=== PATIENT | female | born 1995 | race Caucasian/White ===

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

== ENCOUNTER 2017-01-17 15:09 | Emergency (ER) | payer OTHER ==
[~2017-01-17] VITALS: Ht 170.2 cm; Wt 67.1 kg
--- NOTE | 2017-01-17 15:55 | PD ---
HPI Chief Complaint Contractions Date Seen: Jan 17, 2017 Travel History International Travel<30 Days: No Contact w/Intl Traveler<30Days: No History of Present Illness HPI Patient is a 21 year old at 30-5/7 weeks gestation who presents today for contractions. Contractions have been occurring for the past week q20-30 min and last <1min. She denies any vaginal bleeding or discharge. No gush or leaking of fluid. Positive movement. care with [facility]. History Past Medical History Narrative Medical Mild pulmonary stenosis Obstetric History Obstetric History Elective Past Surgical History Surgical History: No Previous Surgery Family History Family History: Negative Social History Alcohol Use: No Tobacco Use: No Substance Abuse: No Allergies-Medications (Allergen,Severity, Reaction): Coded Allergies: kiwi (Unverified Allergy, Severe, "facial swelling", 01/17/17) Home Meds Active Scripts Without A W/Fe Fum-Fe (Provida Dha 16-16-1.25-110 mg)1 Cap Cap1 Cap PO DAILY #90 BOTTLE Ref 3 Prov:Jose Suarez MD 12/12/16 Reported Medications Hydroxyprogesterone Caproate Inj ([place] Inj)250 Mg/Ml [id number] Mg IM ONCE PRN ( weekly) #1 VIAL Ref 0 01/09/17 Review of Systems Except as stated in HPI: all other systems reviewed are Neg General / Constitutional: No: Fever, Chills Eyes: No: Visual changes HENT: No: Headaches Cardiovascular: No: Chest Pain or Discomfort, Palpitations Respiratory: No: Cough, Short of Breath Gastrointestinal: No: Nausea, Vomiting, Abdominal Pain Genitourinary: Pelvic Pain, No: Dysuria, Hematuria, Discharge, Vaginal Bleeding Musculoskeletal: No: Edema Physical Exam Narrative GENERAL: Well-nourished, well-developed patient. SKIN: Warm and dry. HEAD: Normocephalic and atraumatic. EYES: No scleral icterus. No injection or drainage. ENT: No nasal drainage noted. Mucous membranes pink. Airway patent. NECK: Supple, trachea midline. No JVD. CARDIOVASCULAR: Regular rate and rhythm without murmurs, gallops, or rubs. RESPIRATORY: Breath sounds equal bilaterally. No accessory muscle use. ABDOMEN/GI: Abdomen soft, non-tender, bowel sounds present, no rebound, no guarding Gravid to 30 weeks size GENITOURINARY: External Genitalia: intact and normal in appearance Dilatation: 1 Effacement: 50 Station: -1 Presentation: vertex Membranes: intact Uterine Contractions: none FHT's: Category: I Baseline: 135 Reactive: + Variability: moderate Decels: none EXTREMITIES: No cyanosis or edema. BACK: Nontender without obvious deformity. No CVA tenderness. NEUROLOGICAL: Awake and alert. Motor and sensory grossly within normal limits. Normal speech. Data Data Vital Signs Reviewed: Yes MDM Medical Record Reviewed: Yes Narrative Course / MDM 21 year old at 30-5/7 weeks gestation 1. IUP- Category I tracing, reassuring 2. contractions- patient had DVE in outpatient office today significant for /, cannot obtain FFN. No contractions on monitor. Will monitor fht/ toco for the next couple hours. If patient is daniel, will keep for observation. Will obtain US for cervical length. dw Dr. Person Addendum: Cervical length 16mm, ANNELISE 12.9, reassuring. No contractions on monitor. s/p Betamethasone 12mg IM on 11/28 Will discharge to home. Follow-up with [facility]. Diagnosis Diagnosis: Primary Impression: contractions Additional Impression: 30 weeks gestation of Disposition: DISCHARGE HOME Condition: Stable Alina Samuels MD, R3 Jan 17, 2017 15:54
[2017-01-17] MEDS ORDERED: ACETAMINOPHEN 325 MG TAB PO ONE (17:00)
[2017-01-24] MEDS ORDERED: MAKE250I IM (12:56)
== END 2017-01-17 17:37 | disposition home or self-care (01) ==
LOC: HOBED 15:09
DX: O47.03 False labor before 37 completed weeks of gestation, third trimester (principal); Z3A.30 30 weeks gestation of pregnancy
CPT/HCPCS: 76815; 76817; 99284

== ENCOUNTER 2017-01-27 23:21 | Emergency (ER) | payer OTHER ==
--- NOTE | 2017-01-28 00:01 | PD ---
HPI Chief Complaint Decreased movement Date Seen: Jan 27, 2017 Time Seen: 23:45 Travel History International Travel<30 Days: No Contact w/Intl Traveler<30Days: No Known Affected Area: No History of Present Illness HPI 21-year-old at 32+ weeks gestation who reports decreased movement today. Upon arrival she had improved movement. History Past Medical History Narrative Medical Mild pulmonary stenosis Obstetric History Obstetric History One prior SAB On 17 hydroxyprogesterone this due to shortened cervix following previous admission for labor Past Surgical History Narrative Surgical D&C Family History Family History: Negative Social History Alcohol Use: No Tobacco Use: No Substance Abuse: No Allergies-Medications (Allergen,Severity, Reaction): Coded Allergies: kiwi (Unverified Allergy, Severe, "facial swelling", 01/24/17) Home Meds Active Scripts Without A W/Fe Fum-Fe (Provida Dha 16-16-1.25-110 mg) 1 Cap Cap, 1 CAP PO DAILY for nutrition, #90 BOTTLE 3 Refills Prov:Jose Suarez MD 12/12/16 Reported Medications Hydroxyprogesterone Caproate Inj (Ana M Inj) 250 Mg/Ml Inj, 250 MG IM ONCE Y for weekly, #1 VIAL 0 Refills 01/09/17 Review of Systems Except as stated in HPI: all other systems reviewed are Neg Physical Exam Narrative GENERAL: Well-nourished, well-developed patient. SKIN: Warm and dry. HEAD: Normocephalic and atraumatic. EYES: No scleral icterus. No injection or drainage. ENT: No nasal drainage noted. Mucous membranes pink. Airway patent. NECK: Supple, trachea midline. No JVD. CARDIOVASCULAR: Regular rate and rhythm without murmurs, gallops, or rubs. RESPIRATORY: Breath sounds equal bilaterally. No accessory muscle use. ABDOMEN/GI: Abdomen soft, non-tender, bowel sounds present, no rebound, no guarding Gravid to [-] weeks size Fundal Height: [-] GENITOURINARY: External Genitalia: intact and normal in appearance BUS glands: [-] Cervix: [-] Dilatation: [-] Effacement: [-] Station: [-] Presentation: [-] Membranes: [intact or ruptured] Uterine Contractions: [-] FHT's: Category: [-] Baseline: [-] Reactive: [-Yes] Variability: [-] Decels: [-] EXTREMITIES: No cyanosis or edema. BACK: Nontender without obvious deformity. No CVA tenderness. NEUROLOGICAL: Awake and alert. Motor and sensory grossly within normal limits. Five out of 5 muscle strength in all muscle groups. Normal speech. Data Data Vital Signs Reviewed: Yes MDM Medical Record Reviewed: Yes Narrative Course / MDM Assessment: 33 week intrauterine with decreased movement with reassuring surveillance now Plan: Reactive NST, movement parameters were reviewed. Follow up for routine visits. Diagnosis Diagnosis: Primary Impression: 33 weeks gestation of Additional Impression: Decreased movement Disposition: 01 DISCHARGE HOME Condition: Good Patient Instructions: General Instructions, Labor (ED), Movement (ED) Additional Instructions: RETURN FOR CONTRACTIONS, LOSS OF FLUID (WATER BREAKING), VAGINAL BLEEDING, OR VAGINAL BLEEDING DRINK 8-10 LARGE GLASSES OF WATER EVERY DAY KEEP YOUR SCHDEULED APPOINTMENT WITH YOUR PROVIDER Departure Forms: Tests/Procedures Noam Red MD Jan 28, 2017 00:01
== END 2017-01-28 00:04 | disposition home or self-care (01) ==
LOC: HOBED 23:21
DX: O36.8130 Decreased fetal movements, third trimester, not applicable or unspecified (principal); Z3A.33 33 weeks gestation of pregnancy; Z79.899 Other long term (current) drug therapy
CPT/HCPCS: 59025

== ENCOUNTER 2017-02-20 23:09 | Emergency (ER) | payer OTHER ==
--- NOTE | 2017-02-20 23:47 | PD ---
HPI Chief Complaint Small amount of bleeding vaginally after sex Date Seen: Feb 20, 2017 Time Seen: 23:40 Travel History International Travel<30 Days: No Contact w/Intl Traveler<30Days: No Known Affected Area: No History of Present Illness HPI 21-year-old white female at 35 weeks who [facility] and presents complaining of a small quarter size spot of blood after intercourse , no kei blood per vagina no bleeding like a period no pain, heart rate tracing is reactive and there only an occasional irregular contraction Weeks Gestation: 35 Para: 0 : 2 History Obstetric History Obstetric History 1 early loss History of short cervix with this [16 mm] and is been on Cohutta injections monthly Social History Alcohol Use: No Tobacco Use: No Substance Abuse: No Allergies-Medications (Allergen,Severity, Reaction): Coded Allergies: kiwi (Unverified Allergy, Severe, "facial swelling", 01/31/17) Home Meds Active Scripts Without A W/Fe Fum-Fe (Provida Dha 16-16-1.25-110 mg) 1 Cap Cap, 1 CAP PO DAILY for nutrition, #90 BOTTLE 3 Refills Prov:Jose Suarez MD 12/12/16 Reported Medications Hydroxyprogesterone Caproate Inj (Cohutta Inj) 250 Mg/Ml Inj, 250 MG IM ONCE Y for weekly, #1 VIAL 0 Refills 01/09/17 Review of Systems General / Constitutional: No: Fever, Weight Gain, Chills, Other Eyes: No: Diploplia, Blurred Vision, Visual changes, Pain, Photophobia HENT: No: Headaches, Vertigo, Lightheadedness Cardiovascular: No: Irregular Rhythm, Chest Pain or Discomfort, Palpitations, Tachycardia, Syncope, Varicosities, Edema, Cyanosis Respiratory: No: Cough, Short of Breath, Other Gastrointestinal: No: Nausea, Vomiting, Diarrhea Genitourinary: Vaginal Bleeding, No: Decreased Urinary Output, Oliguria Musculoskeletal: No: Limited ROM, Weakness, Cramping, Edema, Pain Skin: No Rash, No Itching, No Dryness, No Lumps, No Change in Pigmentation, No Change in Nails, No Alopecia, No Lesions Neurologic: No: Weakness, Dizziness, Syncope, Focal Abnormalities, Coordination Problem, Headache, Slurred Speech, Seizures Psychiatric: No: Depression, Suicidal Ideations, Homicidal Ideation Endocrine: No: Heat Intolerance, Cold Intolerance, Polydipsia, Polyuria, Other Physical Exam Narrative GENERAL: Well-nourished, well-developed patient. SKIN: Warm and dry. HEAD: Normocephalic and atraumatic. EYES: No scleral icterus. No injection or drainage. ENT: No nasal drainage noted. Mucous membranes pink. Airway patent. NECK: Supple, trachea midline. No JVD. CARDIOVASCULAR: Regular rate and rhythm without murmurs, gallops, or rubs. RESPIRATORY: Breath sounds equal bilaterally. No accessory muscle use. BREASTS: Bilateral exam showed no masses , no retractions, no nipple discharge. ABDOMEN/GI: Abdomen soft, non-tender, bowel sounds present, no rebound, no guarding Gravid to [35-] weeks size Fundal Height: [35-] GENITOURINARY: External Genitalia: intact and normal in appearance Speculum exam shows no blood in the vagina and the cervix appears normal noninfected but somewhat friable, one could easily be traumatized by intercourse and spot somewhat Cervix: [post-] Dilatation: [FT-] Effacement: [70-] Station: [-3] Presentation: [vtx-] Membranes: [intact ] Uterine Contractions: [-irreg] FHT's: Category: [1-] Baseline: [133-] Reactive: [-yes] Variability: mod[-] Decels: [none-] EXTREMITIES: No cyanosis or edema. BACK: Nontender without obvious deformity. No CVA tenderness. NEUROLOGICAL: Awake and alert. Motor and sensory grossly within normal limits. Five out of 5 muscle strength in all muscle groups. Normal speech. MDM Interpretation(s) Patient is a 21-year-old white female at 35 weeks presents with a small amount of postcoital bleeding. She has a history short cervix that is measured 16 mm the past. She is on Cohutta injections for this. Apparently the cervix is been essentially the same since about 23 weeks, provide the cervical exam is negative blood in the vagina cervix appears normal somewhat friable cervical exam is fingertip 70% -3, heart rate tracing is reactive and there are no regular contractions only an occasional 1 Plan Plan to discharge patient home with instructions she'll follow-up with her OB provider Diagnosis Diagnosis: Primary Impression: Postcoital bleeding Additional Impression: 35 weeks gestation of Disposition: DISCHARGE HOME Condition: Stable Demario Ferraro II, MD Feb 20, 2017 23:47
== END 2017-02-20 23:51 | disposition home or self-care (01) ==
LOC: HOBED 23:09
DX: O26.853 Spotting complicating pregnancy, third trimester (principal); N93.0 Postcoital and contact bleeding; Z3A.35 35 weeks gestation of pregnancy
CPT/HCPCS: 59025

== ENCOUNTER 2017-03-18 07:58 | Inpatient (IN) | payer OTHER ==
[~2017-03-18] VITALS: Ht 170.2 cm; Wt 74.8 kg
[2017-03-18] VITALS (102 sets, daily range): BP systolic 103–151; BP diastolic 56–102; PULSE 78–123; RESP 14–22; TEMP 98–99.5
[2017-03-18] MEDS ORDERED: LACTATED RINGER'S 1000 ML INJ 1,000 ML IV PRN (08:20)
[2017-03-18] MEDS ORDERED: LACTATED RINGER'S 1000 ML INJ 1,000 ML IV SCH (08:20)
--- NOTE | 2017-03-18 08:22 | PD ---
HPI Travel History International Travel<30 Days: No Contact w/Intl Traveler<30Days: No History of Present Illness HPI 21 yr old at 39 weeks presenting with contractions. Contractions started at 5am this morning, every 10 minutes.Contractions have increased in frequency to every 3-4min since 7am. Reports getting care at [facility]. GBS negative. Reports having contractions at 23 weeks and dilatation to 1cm. Reports good movement. Denies vaginal bleeding and leakage of fluid. Currently 4cm and 80% effaced. History Past Medical History Medical History: Denies Significant Hx Obstetric History Obstetric History at 39 weeks contractions @ 23 weeks Past Surgical History Surgical History: No Previous Surgery Family History Family History: Negative Social History Alcohol Use: No Tobacco Use: No (smoke during first month of ) Substance Abuse: No Allergies-Medications (Allergen,Severity, Reaction): Coded Allergies: kiwi (Verified Allergy, Severe, "facial swelling", 03/14/17) Home Meds Discontinued Scripts Without A W/Fe Fum-Fe (Provida Dha 16-16-1.25-110 mg) 1 Cap Cap, 1 CAP PO DAILY for nutrition, #90 BOTTLE 3 Refills Prov:Jose Suarez MD 12/12/16 Review of Systems Except as stated in HPI: all other systems reviewed are Neg Physical Exam Narrative GENERAL: Well-nourished, well-developed patient. SKIN: Warm and dry. HEAD: Normocephalic and atraumatic. EYES: No scleral icterus. No injection or drainage. ENT: No nasal drainage noted. Mucous membranes pink. Airway patent. NECK: Supple, trachea midline. No JVD. CARDIOVASCULAR: Regular rate and rhythm without murmurs, gallops, or rubs. RESPIRATORY: Breath sounds equal bilaterally. No accessory muscle use. ABDOMEN/GI: Abdomen soft, non-tender, bowel sounds present, no rebound, no guarding Gravid to [-] weeks size Fundal Height: [-] GENITOURINARY: External Genitalia: intact and normal in appearance Cervix: mid position Dilatation: 4cm Effacement: 80-90% Station: -1 Presentation: vertex Membranes: intact Uterine Contractions: every 3-5 minutes FHT's: Category: 1 Baseline: 130 Reactive: yes Variability: moderate Decels: none EXTREMITIES: No cyanosis or edema. BACK: Nontender without obvious deformity. NEUROLOGICAL: Awake and alert. Motor and sensory grossly within normal limits. Data Data Vital Signs Reviewed: Yes Orders Orders Admit To Inpatient (03/18/17 ) Code Status (03/18/17 08:20) Vital Signs (Adult) .Per protocol (03/18/17 08:20) Activity Oob Ad Joanie (03/18/17 08:20) Heart (03/18/17 08:20) Amnioinfusion (03/18/17 08:20) Urinary Catheter Management .ONCE (03/18/17 08:20) Diet Liquid (03/18/17 Breakfast) Lactated Ringer's 1000 Ml Inj (Lr 1000 M (03/18/17 08:20) Lactated Ringer's 1000 Ml Inj (Lr 1000 M (03/18/17 08:20) Sodium Chlorid 0.9% 500 Ml Inj (Ns 500 M (03/18/17 08:30) Sodium Chlor 0.9% 1000 Ml Inj (Ns 1000 M (03/18/17 08:40) Lidocaine 1% Inj (50 Ml) (Xylocaine 1% I (03/18/17 08:30) Citric Acid-Sodium Citrate Liq (Bicitra (03/18/17 08:30) Ondansetron Inj (Zofran Inj) (03/18/17 08:30) Fentanyl Inj (Fentanyl Inj) (03/18/17 08:30) Fentanyl Inj (Fentanyl Inj) (03/18/17 08:30) Complete Blood Count With Diff (03/18/17 08:20) Hold Clot (03/18/17 08:20) Abo/Rh Blood Type (03/18/17 08:20) Urinalysis - C+S If Indicated (03/18/17 08:20) Resp Oxygen Non Rebreathe Mask (03/18/17 ) ^ Epidural / Intrathecal Infus (03/18/17 08:20) Oxytocin 30 Units-500ml Premix (Pitocin (03/18/17 08:30) Lidocaine 1% Inj (50 Ml) (Xylocaine 1% I (03/18/17 08:30) Light Mineral Oil (Muri-Lube Oil) (03/18/17 08:30) Inpatient Certification (03/18/17 ) Group B Strep: Negative MDM Medical Record Reviewed: Yes Narrative Course / MDM 21yr at 39 weeks in active labor 1. IUP -category 1, reassuring -continue to monitor 2. GBS negative 3. Labor -made cervical change from previously -regular painful contractions\\ -Admit to L& D -routine labor care -Epidural anesthesia Sarah Del Valle MD R1 Mar 18, 2017 08:21
[2017-03-18] MEDS ORDERED: LIDOCAINE HCL 1% 50 ML VIAL INFIL PRN (08:30)
[2017-03-18] MEDS ORDERED: LIDOCAINE HCL 1% 50 ML VIAL I-DERMAL PRN (08:30)
[2017-03-18] MEDS ORDERED: OXYTOCIN 30 UNITS-500ML PREMIX 500 ML IV ONE (08:30)
[2017-03-18] MEDS ORDERED: MINERAL OIL 10 ML VIAL TOPICAL PRN (08:30)
[2017-03-18] MEDS ORDERED: CITRIC ACID-SODIUM CITRATE LIQ 30 ML UDC PO SCH (08:30)
[2017-03-18] MEDS ORDERED: ONDANSETRON HCL 4 MG/2 ML VIAL IV PUSH PRN (08:30)
[2017-03-18] MEDS ORDERED: SODIUM CHLORID 0.9% 500 ML INJ 500 ML IV PRN (08:30)
--- NOTE | 2017-03-18 08:39 | HHI.HP ---
History & Physical H&P Patient Name: Eva Silvestre Unit Number: [id number] Date of : 1995 Patient Status: Registered Emergency Room Attending Doctor: Monse Person MD HPI HPI Travel History International Travel<30 Days: No Contact w/Intl Traveler<30Days: No History of Present Illness HPI 21 yr old at 39 weeks presenting with contractions. Contractions started at 5am this morning, every 10 minutes.Contractions have increased in frequency to every 3-4min since 7am. Reports getting care at [facility]. GBS negative. Reports having contractions at 23 weeks and dilatation to 1cm. Reports good movement. Denies vaginal bleeding and leakage of fluid. Currently 4cm and 80% effaced. History (Limited) History Past Medical History Medical History: Denies Significant Hx Obstetric History Obstetric History at 39 weeks contractions @ 23 weeks Past Surgical History Surgical History: No Previous Surgery Family History Family History: Negative Social History Alcohol Use: No Tobacco Use: No (smoke during first month of ) Substance Abuse: No Allergies-Medications Allergies-Medications (Allergen,Severity, Reaction): Coded Allergies: kiwi (Verified Allergy, Severe, "facial swelling", 03/14/17) Home Meds Discontinued Scripts Without A W/Fe Fum-Fe (Provida Dha 16-16-1.25-110 mg) 1 Cap Cap, 1 CAP PO DAILY for nutrition, #90 BOTTLE 3 Refills Prov:Jose Suarez MD 12/12/16 ROS Review of Systems Except as stated in HPI: all other systems reviewed are Neg Physical Exam Physical Exam Narrative GENERAL: Well-nourished, well-developed patient. SKIN: Warm and dry. HEAD: Normocephalic and atraumatic. EYES: No scleral icterus. No injection or drainage. ENT: No nasal drainage noted. Mucous membranes pink. Airway patent. NECK: Supple, trachea midline. No JVD. CARDIOVASCULAR: Regular rate and rhythm without murmurs, gallops, or rubs. RESPIRATORY: Breath sounds equal bilaterally. No accessory muscle use. ABDOMEN/GI: Abdomen soft, non-tender, bowel sounds present, no rebound, no guarding Gravid to [-] weeks size Fundal Height: [-] GENITOURINARY: External Genitalia: intact and normal in appearance Cervix: mid position Dilatation: 4cm Effacement: 80-90% Station: -1 Presentation: vertex Membranes: intact Uterine Contractions: every 3-5 minutes FHT's: Category: 1 Baseline: 130 Reactive: yes Variability: moderate Decels: none EXTREMITIES: No cyanosis or edema. BACK: Nontender without obvious deformity. NEUROLOGICAL: Awake and alert. Motor and sensory grossly within normal limits. Data Data Data Vital Signs Reviewed: Yes Orders Orders Admit To Inpatient (03/18/17 ) Code Status (03/18/17 08:20) Vital Signs (Adult) .Per protocol (03/18/17 08:20) Activity Oob Ad Joanie (03/18/17 08:20) Heart (03/18/17 08:20) Amnioinfusion (03/18/17 08:20) Urinary Catheter Management .ONCE (03/18/17 08:20) Diet Liquid (03/18/17 Breakfast) Lactated Ringer's 1000 Ml Inj (Lr 1000 M (03/18/17 08:20) Lactated Ringer's 1000 Ml Inj (Lr 1000 M (03/18/17 08:20) Sodium Chlorid 0.9% 500 Ml Inj (Ns 500 M (03/18/17 08:30) Sodium Chlor 0.9% 1000 Ml Inj (Ns 1000 M (03/18/17 08:40) Lidocaine 1% Inj (50 Ml) (Xylocaine 1% I (03/18/17 08:30) Citric Acid-Sodium Citrate Liq (Bicitra (03/18/17 08:30) Ondansetron Inj (Zofran Inj) (03/18/17 08:30) Fentanyl Inj (Fentanyl Inj) (03/18/17 08:30) Fentanyl Inj (Fentanyl Inj) (03/18/17 08:30) Complete Blood Count With Diff (03/18/17 08:20) Hold Clot (03/18/17 08:20) Abo/Rh Blood Type (03/18/17 08:20) Urinalysis - C+S If Indicated (03/18/17 08:20) Resp Oxygen Non Rebreathe Mask (03/18/17 ) ^ Epidural / Intrathecal Infus (03/18/17 08:20) Oxytocin 30 Units-500ml Premix (Pitocin (03/18/17 08:30) Lidocaine 1% Inj (50 Ml) (Xylocaine 1% I (03/18/17 08:30) Light Mineral Oil (Muri-Lube Oil) (03/18/17 08:30) Inpatient Certification (03/18/17 ) Group B Strep: Negative MDM MDM Medical Record Reviewed: Yes Narrative Course / MDM 21yr at 39 weeks in active labor 1. IUP -category 1, reassuring -continue to monitor 2. GBS negative 3. Labor -made cervical change from previously -regular painful contractions\\ -Admit to L& D -routine labor care -Epidural anesthesia Sarah Del Valle MD R1 Mar 18, 2017 08:21 Sarah Del Valle MD R1 Mar 18, 2017 08:39
[2017-03-18] MEDS ORDERED: SODIUM CHLOR 0.9% 1000 ML INJ 1,000 ML IV PRN (08:40)
[2017-03-18] MEDS ORDERED: fentaNYL 2MCG-BUPIV 0.125% INJ 100 ML ONE ×2 (09:32→16:29)
[2017-03-18 09:51] LABS: AUTOMATED NEUTROPHIL # 13.3 TH/MM3 (1.8-7.7); BASOPHIL % 0.1 % (0.0-2.0); EOSINOPHIL % 0.2 % (0.0-4.0); HEMO FLAGS DIFF FINAL; LYMPH % 15.2 % (9.0-44.0); LYMPHOCYTE # 2.6 TH/MM3 (1.0-4.8); MEAN CELL VOLUME 84.2 FL (80.0-100.0); MEAN CORPUSCULAR HEMOGLOBIN 27.9 PG (27.0-34.0); MEAN CORPUSCULAR HGB CONC 33.1 % (32.0-36.0); MONO % 6.4 % (0.0-8.0); NEUT % 78.1 % (16.0-70.0); PLATELET COUNT 436 TH/MM3 (150-450); RED CELL DISTRIBUTION WIDTH 13.4 % (11.6-17.2)
[2017-03-18] MEDS ORDERED: OXYTOCIN 30 UNITS-500ML PREMIX 500 ML IV SCH ×2 (14:30→18:00)
[2017-03-18] MEDS ORDERED: MEASLES, MUMPS, RUBELLA VACCINE 0.5 ML VIAL SQ ONE (16:00)
[2017-03-18] MEDS ORDERED: DIPHTH/TETANUS/ACEL PERTUSSIS (BOOSTER) 0.5 ML VIAL/PFS IM ONE (16:00)
--- NOTE | 2017-03-18 17:59 | PD.OB.DELI ---
Weeks gestation: 39 Gest age assessed date: Mar 18, 2017 Gest age assessed time: 08:11 Pt started active labor?: Yes Active labor start date: Mar 18, 2017 Active labor start time: 08:00 Medical induction of labor?: No Artificial rupture of membrane: Yes Anesthesia: Epidural Episiotomy: Midline Vaginal Delivery: Vacuum Presentation: Occiput anterior, Compound (hand) Nuchal Cord: x1 Delayed cord clamping (45 sec): Yes Infant: Female Delivery date: Mar 18, 2017 Delivery time: 17:31 One Minute : 9 Five Minute : 9 Weight: 3065g Placenta: Spontaneous delivery, Intact, 3 vessel cord Laceration: Episiotomy, 2 deg Repair: Chromic running (2.0 chromic) Estimated blood loss: 250cc Additional Information Vacuum assisted delivery with 2 pop-offs. Supervised by Dr. Ferraro. Alina Samuels MD, R3 Mar 18, 2017 17:59
[2017-03-18] MEDS ORDERED: WITCH HAZEL 50%/GLYCERIN 12.5% 40 PAD JAR TOPICAL PRN (18:00)
[2017-03-18] MEDS ORDERED: oxyCODONE/ACETAMINOPHEN 5 MG/325 MG TAB PO PRN ×2 (18:00)
[2017-03-18] MEDS ORDERED: ONDANSETRON ODT 4 MG TAB PO PRN (18:00)
[2017-03-18] MEDS ORDERED: BENZOCAINE 20% TOPICAL SPRAY 60 ML CAN TOPICAL PRN (18:00)
[2017-03-18] MEDS ORDERED: ZOLPIDEM TARTRATE 5 MG TAB PO PRN (18:00)
[2017-03-18] MEDS ORDERED: ALUMINUM/MAGNESIUM/SIMETH 30 ML CUP PO PRN (18:00)
[2017-03-18] MEDS ORDERED: SODIUM CHLORIDE 0.9% FLUSH 10 ML FLUSH IV FLUSH PRN (18:00)
[2017-03-18 18:49] LABS: BACTERIA, URINE FEW /hpf; BLOOD, URINE MOD (NEG); COMMENT (UR) CULTURE INDICATED; CULTURE IF INDICATED CULTURE INDICATED; GLUCOSE,URINE NEG (NEG); KETONE, URINE 40 mg/dL (NEG); MUCUS URINE FEW /lpf (OCC); NITRITE,URINE NEG (NEG); PH, URINE 6.5 (5.0-8.5); SQUAMOUS EPITHELIAL CELL URINE <1 /hpf (0-5); URINE COLOR YELLOW (YELLW/STRAW)
[2017-03-18] MEDS: DOCUSATE SODIUM 50 MG/SENNA 8.6 MG TAB PO PRN (20:54)
[2017-03-18] MEDS ORDERED: SODIUM CHLORIDE 0.9% FLUSH 10 ML FLUSH IV FLUSH SCH (21:00)
[2017-03-19 08:00] VITALS: BP 128/76; PULSE 89; RESP 18; TEMP 98.7
[2017-03-19] MEDS: IBUPROFEN 600 MG TAB PO PRN ×2 (08:43→15:22)
[2017-03-19] MEDS: ACETAMINOPHEN 325 MG TAB PO PRN ×2 (08:43→15:21)
--- NOTE | 2017-03-19 08:57 | HHI.OB ---
Subjective Remarks 21 year old female s/p vaccum-assisted w/ two-pop offs w/ midline episiotomy at 39 wks gestation, PPD1. AFVSS. Patient reports she is feeling well. Bleeding is decreasing and pain is well-controlled. She is breast feeding and bonding well with baby. Ambulating without difficulties. She is tolerating a diet without nausea or vomiting. She has not had a bowel movement. She has passed gas. Denies chest pain, dysuria, shortness of breath, or calf pain. Objective Vitals/I&O Vital Signs Date Time Temp Pulse Resp B/P (MAP) Pulse Ox O2 Delivery O2 Flow Rate FiO2 03/18/17 20:45 99.1 103 17 112/67 (82) 03/18/17 19:36 98.4 03/18/17 19:30 102 122/69 (86) 03/18/17 19:24 18 03/18/17 19:15 105 131/63 (85) 03/18/17 19:05 14 03/18/17 19:00 94 130/66 (87) 03/18/17 18:45 98 126/69 (88) 03/18/17 18:35 98.9 03/18/17 18:35 14 03/18/17 18:30 98 123/61 (81) 03/18/17 18:15 100 126/66 (86) 03/18/17 18:05 22 03/18/17 18:00 100 130/67 (88) 03/18/17 17:50 20 03/18/17 17:47 99.5 03/18/17 17:45 99 133/72 (92) 03/18/17 17:30 98 151/80 (103) 03/18/17 17:16 99 133/66 (88) 03/18/17 17:07 20 03/18/17 17:07 98.0 03/18/17 17:00 88 122/102 (109) 03/18/17 16:45 101 134/83 (100) 03/18/17 16:45 17 03/18/17 16:30 18 03/18/17 16:15 103 132/74 (93) 03/18/17 16:14 17 03/18/17 16:00 16 03/18/17 16:00 111 131/63 (85) 03/18/17 15:45 106 126/75 (92) 03/18/ 15:30 108 122/77 (92) 03/18/17 15:15 112 124/72 (89) 03/18/17 15:00 16 03/18/17 15:00 99.0 03/18/17 15:00 108 119/69 (86) 03/18/17 14:45 110 116/72 (87) 03/18/17 14:35 103 03/18/17 14:30 101 03/18/17 14:30 103 128/78 (95) 03/18/17 14:25 123 03/18/17 14:22 16 03/18/17 14:20 101 03/18/17 14:15 102 127/62 (83) 03/18/17 14:15 91 03/18/17 14:10 94 03/18/17 14:05 98 03/18/17 14:00 98 117/61 (79) 03/18/17 14:00 101 03/18/17 13:55 96 03/18/17 13:50 95 03/18/17 13:45 18 03/18/17 13:45 97 17 111/67 (82) 03/18/17 13:40 94 03/18/17 13:35 93 03/18/17 13:30 95 119/64 (82) 03/18/17 13:25 100 03/18/17 13:20 96 03/18/17 13:15 95 119/67 (84) 03/18/17 13:10 101 03/18/17 13:05 101 03/18/17 13:00 102 127/56 (79) 03/18/17 13:00 91 03/18/17 12:55 98.6 95 16 03/18/17 12:50 93 03/18/17 12:45 100 120/72 (88) 03/18/17 12:45 98 03/18/17 12:40 100 03/18/17 12:35 99 03/18/17 12:30 100 115/78 (90) 17 12:30 16 17 12:30 98 17 12:25 98 17 12:20 98 03/18/17 12:15 123/76 (92) 03/18/17 12:15 92 03/18/17 12:10 111 03/18/17 12:05 94 03/18/17 12:00 90 130/73 (92) 03/18/17 12:00 97 03/18/17 11:45 97 03/18/17 11:45 122/72 (89) 03/18/17 11:40 88 03/18/17 11:35 91 03/18/17 11:30 87 03/18/17 11:30 91 133/79 (97) 03/18/17 11:30 16 03/18/17 11:25 89 03/18/17 11:20 88 03/18/17 11:15 93 143/80 (101) 03/18/17 11:15 97 03/18/17 11:05 86 118/72 (87) 03/18/17 11:05 88 03/18/17 11:00 97 107/93 (98) 03/18/17 11:00 98 03/18/17 10:55 98 03/18/17 10:55 97 103/77 (86) 03/18/17 10:50 81 122/73 (89) 03/18/17 10:50 83 03/18/17 10:45 118/69 (85) 03/18/17 10:45 79 03/18/17 10:45 78 03/18/17 10:40 78 117/63 (81) 03/18/17 10:40 79 03/18/17 10:35 82 03/18/17 10:35 83 03/18/17 10:35 81 122/67 (85) 03/18/17 10:30 91 127/73 (91) 03/18/17 10:30 82 03/18/17 10:30 91 03/18/17 10:25 87 03/18/17 10:25 85 03/18/17 10:25 86 122/69 (86) 03/18/17 10:24 89 16 117/67 (84) 03/18/17 10:20 81 17 10:20 83 127/71 (89) 03/18/17 10:20 78 03/18/17 10:15 81 17 10:15 93 126/64 (84) 03/18/17 10:15 95 03/18/17 10:14 94 134/85 (101) 03/18/17 10:10 126/67 (86) 03/18/17 10:10 85 03/18/17 10:10 84 03/18/17 10:09 134/73 (93) 03/18/17 10:09 83 03/18/17 10:05 89 03/18/17 10:00 86 03/18/17 09:58 83 134/70 (91) 03/18/17 09:55 88 03/18/17 09:55 90 03/18/17 09:51 80 126/72 (90) 03/18/17 09:50 81 03/18/17 09:45 87 03/18/17 09:40 82 03/18/17 09:35 102 03/18/17 09:30 88 03/18/17 09:25 83 03/18/17 09:21 98.1 20 03/18/17 09:20 90 143/84 (103) 03/18/17 09:20 79 03/18/17 09:15 81 Objective Remarks GENERAL: Well-nourished, well-developed patient. CARDIOVASCULAR: Regular rate and rhythm without murmurs, gallops, or rubs. RESPIRATORY: Breath sounds equal bilaterally. No accessory muscle use. ABDOMEN/GI: Abdomen soft, non-tender. Fundus: Firm, non-tender at umbilicus. GENITOURINARY: Light to moderate bleeding. EXTREMITIES: No cyanosis or edema, non-tender, without signs of DVT. Medications and IVs Current Medications Medications (Trade) Dose Ordered Sig/Rosa Route Start Time Stop Time Status Last Admin (Xylocaine 1% Inj (50 ml)) 0.1 ml UNSCH X1 PRN I-DERMAL 03/18/17 08:30 03/21/17 08:29 (Bicitra Liq) 30 ml MATERIAL ATTENDANT PO 03/18/17 08:30 03/22/17 08:29 (Xylocaine 1% Inj (50 ml)) 10 ml UNSCH X1 PRN INFIL 03/18/17 08:30 03/20/17 08:29 (NS Flush) 2 ml BID IV FLUSH 03/18/17 21:00 (NS Flush) 2 ml UNSCH PRN IV FLUSH 03/18/17 18:00 (Tylenol) 650 mg Q4H PRN PO 03/18/17 18:00 03/19/17 08:43 (Motrin) 600 mg Q6H PRN PO 03/18/17 18:00 03/19/17 08:43 (Percocet 5-325 Mg) 1 tab Q4H PRN PO 03/18/17 18:00 (Percocet 5-325 Mg) 2 tab Q4H PRN PO 03/18/17 18:00 (Americaine 20% Top Spr) 1 spray Q4H PRN TOPICAL 03/18/17 18:00 03/18/17 20:54 (Tucks Pads) 1 applic QID PRN TOPICAL 03/18/17 18:00 03/18/17 20:54 (Jacqui-Colace) 2 tab Q12H PRN PO 03/18/17 18:00 03/18/17 20:54 (Ambien) 5 mg HS PRN PO 03/18/17 18:00 (Mag-Al Plus Susp Liq) 15 ml Q8H PRN PO 03/18/17 18:00 (Zofran Odt) 4 mg Q6H PRN PO 03/18/17 18:00 Assessment/Plan Assessment and Plan 21 yo female s/p vacuum-assisted w/ 2 pop-offs w/ midline episiotomy, PPD 1 - AFVSS - Continue routine care - Motrin PRN pain - Encourage OOB - Pelvic rest x 6 wks. - Contraception: Depo - Anticipate D/C tomorrow Sarah Del Valle MD R1 Mar 19, 2017 08:57
[2017-03-19] MEDS ORDERED: medroxyPROGESTERone ACETATE SUSP 150 MG/ML SYRINGE IM ONE (09:00)
[2017-03-19] MEDS: DOCUSATE SODIUM 50 MG/SENNA 8.6 MG TAB PO PRN (15:22)
[2017-03-19 20:00] VITALS: BP 109/65; PULSE 87; RESP 18; TEMP 98.4; O2SAT 99
--- NOTE | 2017-03-20 07:03 | HHI.OB ---
Subjective Remarks 21 year old female s/p vaccum-assisted w/ two-pop offs w/ midline episiotomy at 39 wks gestation, PPD2. AFVSS. Patient reports she is feeling well. Bleeding is decreasing and pain is well-controlled. She is breast feeding and bonding well with baby. Ambulating without difficulties. She is tolerating a diet without nausea or vomiting. She has not had a bowel movement. She has passed gas. Denies chest pain, dysuria, shortness of breath, or calf pain. (Sarah Del Valle MD R1) Objective Vitals/I&O Vital Signs Date Time Temp Pulse Resp B/P (MAP) Pulse Ox O2 Delivery O2 Flow Rate FiO2 03/19/17 20:00 109/65 (80) 03/19/17 20:00 98.4 87 18 99 03/19/17 08:00 98.7 03/19/17 08:00 89 18 128/76 (93) Objective Remarks GENERAL: Well-nourished, well-developed patient. CARDIOVASCULAR: Regular rate and rhythm without murmurs, gallops, or rubs. RESPIRATORY: Breath sounds equal bilaterally. No accessory muscle use. ABDOMEN/GI: Abdomen soft, non-tender. Fundus: Firm, non-tender at umbilicus. GENITOURINARY: Light to moderate bleeding. EXTREMITIES: No cyanosis or edema, non-tender, without signs of DVT. Medications and IVs Current Medications Medications (Trade) Dose Ordered Sig/Rosa Route Start Time Stop Time Status Last Admin (Xylocaine 1% Inj (50 ml)) 0.1 ml UNSCH X1 PRN I-DERMAL 03/18/17 08:30 03/21/17 08:29 (Bicitra Liq) 30 ml INSOLE TAPER PO 03/18/17 08:30 03/22/17 08:29 (Xylocaine 1% Inj (50 ml)) 10 ml UNSCH X1 PRN INFIL 03/18/17 08:30 03/20/17 08:29 (NS Flush) 2 ml BID IV FLUSH 03/18/17 21:00 (NS Flush) 2 ml UNSCH PRN IV FLUSH 03/18/17 18:00 (Tylenol) 650 mg Q4H PRN PO 03/18/17 18:00 03/19/17 15:21 (Motrin) 600 mg Q6H PRN PO 03/18/17 18:00 03/19/17 15:22 (Percocet 5-325 Mg) 1 tab Q4H PRN PO 03/18/17 18:00 (Percocet 5-325 Mg) 2 tab Q4H PRN PO 03/18/17 18:00 (Americaine 20% Top Spr) 1 spray Q4H PRN TOPICAL 03/18/17 18:00 03/18/17 20:54 (Tucks Pads) 1 applic QID PRN TOPICAL 03/18/17 18:00 03/18/17 20:54 (Jacqui-Colace) 2 tab Q12H PRN PO 03/18/17 18:00 03/19/17 15:22 (Ambien) 5 mg HS PRN PO 03/18/17 18:00 (Mag-Al Plus Susp Liq) 15 ml Q8H PRN PO 03/18/17 18:00 (Zofran Odt) 4 mg Q6H PRN PO 03/18/17 18:00 (Flu (Quadrivalent) Vaccine Inj) 0.5 ml ONCE ONCE IM 03/20/17 10:00 03/20/17 10:01 (Sarah Del Valle MD R1) Assessment/Plan Assessment and Plan 21 yo female s/p vacuum-assisted w/ 2 pop-offs w/ midline episiotomy, PPD 2 - AFVSS - Motrin PRN pain - Encourage OOB - Pelvic rest x 6 wks. - Contraception: patient denied depo shot due to it possibly affecting . She will talk to her LOAN OFFICER ASSISTANT at her 6 week appt about control. - Anticipate D/C today (Sarah Del Valle MD R1) Attending Attestation I agree with the plan of care as documented above. (John Flower MD) Sarah Del Valle MD R1 Mar 20, 2017 07:03 John Flower MD Mar 20, 2017 09:38
[2017-03-20] MEDS ORDERED: IBUP-232 PO (07:06)
--- NOTE | 2017-03-20 07:06 | HHI.DCPOC ---
Discharge Care Plan Diagnosis: (1) Normal vaginal delivery Report Symptoms to Your Doctor -Temperature above 100.5 degrees -Redness, of incision or excessive or foul smelling drainage -Unusual pain or calf pain -Increased vaginal bleeding -Painful or difficulty urinating -Feelings of extreme sadness or anxiety after 2 weeks Goals to Promote Your Health * To prevent worsening of your condition and complications * To maintain your health at the optimal level Directions to Meet Your Goals Take your medications as prescribed Follow your dietary instruction Follow activity as directed Ensure plenty of rest for recovery Drink fluids for hydration Keep your appointments as scheduled Take your immunizations and boosters as scheduled If your symptoms worsen call your PCP, if no PCP go to Urgent Care Center or Emergency Room Smoking is Dangerous to Your Health. Avoid second hand smoke Call the 24-hour crisis hotline for domestic abuse at Mk Barrera MD R2 Mar 20, 2017 07:06
[2017-03-20] MEDS ORDERED: INFLUENZA VIRUS VACCINE (QUADRIVALENT) 0.5 ML SYR IM ONE (10:00)
[2017-03-20] MEDS: ACETAMINOPHEN 325 MG TAB PO PRN (10:06)
[2017-03-20] MEDS: IBUPROFEN 600 MG TAB PO PRN (10:06)
[2017-03-20] MEDS: DOCUSATE SODIUM 50 MG/SENNA 8.6 MG TAB PO PRN (10:06)
== END 2017-03-20 12:01 | disposition home or self-care (01) | DRG 775 ==
LOC: HOBED 07:58 → H2EA 08:27 → H1EA 20:00
PROVIDERS: ADMIT Obstetrics & Gynecology Obstetrics; ATTEND Obstetrics & Gynecology Obstetrics
PROC: 10D07Z6 Extraction of Products of Conception, Vacuum, Via Natural or Artificial Opening (ICD-10-PCS; principal; 2017-03-18)
PROC: 0W8NXZZ Division of Female Perineum, External Approach (ICD-10-PCS; 2017-03-18)
PROC: 3E0R3BZ Introduction of Anesthetic Agent into Spinal Canal, Percutaneous Approach (ICD-10-PCS; 2017-03-18)
PROC: 00HU33Z Insertion of Infusion Device into Spinal Canal, Percutaneous Approach (ICD-10-PCS; 2017-03-18)
DX: O32.6XX0 Maternal care for compound presentation, not applicable or unspecified (principal); Z37.0 Single live birth; Z3A.39 39 weeks gestation of pregnancy; Z23 Encounter for immunization
CPT/HCPCS: 81001; 85025; 86900; 86901; 87086; 90686; 90715; J7120; Q2038